=== PATIENT | male | born 2005 | race Asian ===

== ENCOUNTER 2023-06-11 16:34 | Emergency (ER) | payer BC ==
[~2023-06-11] VITALS: Ht 182.9 cm; Wt 85.0 kg
[2023-06-11 16:45] VITALS: O2SAT 97
[2023-06-11] MEDS ORDERED: IBUP-2028 MT (18:25)
[2023-06-11 19:33] VITALS: BP 101/65; PULSE 78; RESP 18; TEMP 98
== END 2023-06-11 19:36 | disposition home or self-care (01) ==
LOC: ER 16:34
DX: S93.522A Sprain of metatarsophalangeal joint of left great toe, initial encounter (principal); X58.XXXA Exposure to other specified factors, initial encounter; Y93.89 Activity, other specified; Y92.89 Other specified places as the place of occurrence of the external cause; Y99.8 Other external cause status
CPT/HCPCS: 73630; 99283